=== PATIENT | male | born 1995 | race African-American/Black ===

== ENCOUNTER 2021-11-20 17:12 | Emergency (ER) | payer BC ==
[2021-11-20] MEDS ORDERED: Bicillin LA 1.2 MILLION UNITS/2 ML SYRINGE ONE (20:00)
== END 2021-11-20 20:24 | disposition home or self-care (01) ==
LOC: CSHERS 17:12
DX: J02.0 Streptococcal pharyngitis (principal)
CPT/HCPCS: 87430; 96372; 99283; J0561

== ENCOUNTER 2022-02-27 10:22 | Emergency (ER) | payer BC | END 2022-02-27 12:17 | disposition left against medical advice (07) | LOC: CSHERS 10:22 | DX: Z53.21 Procedure and treatment not carried out due to patient leaving prior to being seen by health care provider (principal) ==